=== PATIENT | female | born 1980 | race Caucasian/White ===

== ENCOUNTER 2016-04-27 17:54 | Emergency (ER) | payer BC, OTHER ==
[2016-04-27 18:09] VITALS: BP 115/73; PULSE 65; TEMP 98.9; BMI 27.4
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
[2016-04-27] MEDS ORDERED: IBUPROFEN 400 MG TABLET (FP) PO ONE ×2 (20:07→20:08)
--- NOTE | 2016-04-28 09:50 | EKG ---
Test Reason : Blood Pressure : / mmHG Vent. Rate : 065 BPM Atrial Rate : 065 BPM P-R Int : 148 ms QRS Dur : 086 ms QT Int : 414 ms P-R-T Axes : 028 052 045 degrees QTc Int : 430 ms NORMAL SINUS RHYTHM NORMAL ECG NO PREVIOUS ECGS AVAILABLE Confirmed by ZION ABEBE MD ([id number]) on 04/28/2016 9:50:28 AM Referred By: Overread By: ZION ABEBE MD
== END 2016-04-27 20:16 | disposition home or self-care (01) ==
LOC: JERFT 17:54
DX: R07.9 Chest pain, unspecified (principal)
CPT/HCPCS: 71020-TC; 84703; 93005; 93010; 99281-25